=== PATIENT | male | born 1945 | race Caucasian/White ===

== ENCOUNTER → 2019-04-17 15:26 | Outpatient (CLI) | payer MEDICARE, BC, SELFPAY ==
--- NOTE | 2019-04-17 15:31 | MR_ITS ---
PROCEDURE: MR LUMBAR SPINE WO CON CLINICAL INDICATION: LUMBAR BACK PAIN W/RADICULOPATHY AFFECTING RT LOWER EXTREMIT Low back pain with right leg weakness and numbness COMPARISON: No exams were available for comparison TECHNIQUE: Standard multiplanar multiecho sequences are performed without contrast. 3-D MIP and myelographic images are also rendered and reviewed FINDINGS: There is normal alignment. The spinal cord ends at the L1-L2 level. T11-T12: Degenerate disc disease with type 2 endplate changes superiorly at T12. There is mild loss of height the T12 anteriorly which appears chronic. T12-L1: There is mild degenerative disc disease with minimal concentric bulging disc and mild facet and ligamentum hypertrophy. The disc is slightly eccentric toward the left with mild left lateral recess narrowing. L1-L2: Minimal bulging disc L2-L3: Mild facet ligamentum hypertrophy with mild left lateral recess narrowing L3-L4: Mild concentric bulging disc with mild degenerative disc disease. There is moderate facet ligamentum hypertrophy with moderate to severe bilateral lateral recess narrowing and moderate bilateral foraminal narrowing. There is canal stenosis at this level of 10 mm. Small T2 hyperintense lesion is present in the left aspect of the L4 vertebral body measuring 1 cm and may be due to small hemangioma. L4-5: There is 4 mm anterolisthesis of L4 on L5. There is a broad based central and right paracentral and foraminal disc protrusion with an associated right paracentral and foraminal disc herniation with superior extrusion of the disc with resultant severe right-sided foraminal narrowing impingement upon the exiting L4 nerve root. The disc in the right paracentral and foraminal region measures approximately 2 cm in with and is extruded superiorly by approximately eight mm. There is facet ligamentum hypertrophy at this level with moderate bilateral lateral recess narrowing, severe right-sided foraminal narrowing and mild left foraminal narrowing. The right-sided foraminal narrowing is accentuated by the disc protrusion and bulging disc. L5-S1: Mild bulging disc with a small central disc protrusion along with facet ligamentum hypertrophy with moderate left-sided foraminal narrowing. There is facet ligamentum hypertrophy at this level as well. IMPRESSION: 1. Abnormal MRI of the lumbar spine. There is mild multilevel lumbar spondylosis with bulging disc and facet and ligamentum hypertrophy. Please see above for detailed description at each level. 2. L3-L4: Mild concentric bulging disc with mild degenerative disc disease. There is moderate facet ligamentum hypertrophy with moderate to severe bilateral lateral recess narrowing and moderate bilateral foraminal narrowing. There is canal stenosis at this level of 10 mm. Small T2 hyperintense lesion is present in the left aspect of the L4 vertebral body measuring 1 cm and may be due to small hemangioma. 3. L4-5: There is 4 mm anterolisthesis of L4 on L5. There is a broad based central and right paracentral and foraminal disc protrusion with an associated right paracentral and foraminal disc herniation with superior extrusion of the disc with resultant severe right-sided foraminal narrowing impingement upon the exiting L4 nerve root. The disc in the right paracentral and foraminal region measures approximately 2 cm in with and is extruded superiorly by approximately eight mm. There is facet ligamentum hypertrophy at this level with moderate bilateral lateral recess narrowing, severe right-sided foraminal narrowing and mild left foraminal narrowing. The right-sided foraminal narrowing is accentuated by the disc protrusion and bulging disc. 4. L5-S1: Mild bulging disc with a small central disc protrusion
== END ==
PROVIDERS: PCP Family Medicine; Visit Provider Family Medicine
DX: M54.16 Radiculopathy, lumbar region (principal); R29.898 Other symptoms and signs involving the musculoskeletal system; R20.0 Anesthesia of skin
CPT/HCPCS: 72148; 76376

== ENCOUNTER → 2019-05-08 14:02 | Outpatient (POV) | payer MEDICARE, BC, SELFPAY ==
[2019-05-08 14:24] VITALS: BP 155/72; PULSE 84; RESP 18; O2SAT 97; BMI 21.6
--- NOTE | 2019-05-09 11:21 | HMH.PMCON ---
Assessment and Plan (1) Degenerative disc disease Current visit: Yes Status: Chronic Category: Medical (2) Lumbar nerve root impingement Current visit: Yes Status: Chronic Category: Medical Code(s): M54.16 - Radiculopathy, lumbar region - Assessment and plan all Dx Assessment and Plan for all problems:: We will increase the patient's gabapentin to 300 mg 1 p.o. 3 times daily. We will set him up for an L4-L5 epidural steroid injection as soon as possible and get him set up with Dr. Barkley in [place] for consultation. He has been instructed to call the office if he has any issues prior to his next appointment. I will follow-up with him in 1 month if we are not doing procedures yet to ensure that the gabapentin is helping him. Dr. Macias has reviewed this note and agrees with this plan of care. This note was dictated using voice recognition software and may contain errors or omissions HPI - Data of Consult Consult date: 05/08/19 Requesting Physician: Isabel Aviles APRN Primary Care Provider: Jj Jones MD - Consult Narrative Reason for consult: Back pain, leg pain History of present illness: Mr. Dugan is a 74 year old male who presents today with severe back pain. Patient had a recent MRI showing degenerative issues along with nerve impingement and bulging disc. Patient and I had a conversation in regards to his treatment plan. Patient is wearing a brace today. Patient's tried and failed chiropractic therapy, anti-inflammatories and is currently on gabapentin 100 mg 1 p.o. twice daily. Patient and I discussed treatment options. Including epidural injections. I do believe he also should see a neurosurgeon. CC: Isabel Aviles APRN [facility] History I have reviewed the patient's past medical history: Yes Medical History: Reports:: Hypertension, Palpitations Denies:: Diabetes Mellitus Type 1, Diabetes Mellitus Type 2 *Have you ever received a pneumonia vaccine?: Yes *Have you received a flu vaccine this season?: Yes Laterality Cases: Left: Arthroscopy Knee, Bilateral: Cataract Other Surgeries: Yes: Hernia Repair Amputation: No Fractures: No - *Social History Smoking Status: Never smoker Alcohol Intake: never *Occupational Status:: employed Housing: house Household Members: spouse *Travel in the last 8 weeks: None Family Hx:: Unable to obtain Review of Systems - Review of Systems ROS General: no recent weight change, no fever, no sleep disturbances Respiratory: no cough, no shortness of air, no recurring pulmonary infections Cardiovascular/Peripheral Vascular: No chest pain, No palpitations, no edema, no shortness of breath. Gastrointestinal: no new onset incontinence, normal bowel movements reported Genitourinary: no new onset incontinence Musculoskeletal: Back pain, leg pain Psychiatric: normal mood/ affect Neurological: [denies new onset weakness in extremities], [denies new onset balance issues] Meds Home Medications Medication Instructions Recorded Confirmed Type Gabapentin [Neurontin 300mg 300 mg PO TID #90 cap 05/08/19 Rx capsule] Objective Vital signs: Pulse Resp BP Pulse Ox 84 18 155/72 H 97 05/08/19 14:24 05/08/19 14:24 05/08/19 14:24 05/08/19 14:24 Narrative: Physical Exam General: Alert and oriented x3, no acute distress, pleasant and cooperative, [on room air] Lungs: Resps E/U, Symmetrical chest expansion, Eyes: PERRL Musculoskeletal: Flexion and extension of lumbar spine somewhat guarded secondary to pain, deep tendon reflexes normal, strength in upper and lower extremities [5/5], antalgic gait noted Neurological: speech clear, circuit breaker mechanic equal, no gross sensory deficits Opioid Risk Tool - Opioid Risk Tool-Male Family hx alcohol abuse: N Family hx illegal drugs: N Family hx rx drug abuse: N Personal hx alcohol abuse: N Personal hx illegal drugs: N Personal hx rx drug abuse: N Age: 45+ Hx of se
== END ==
PROVIDERS: PCP Family Medicine; Visit Provider Clinical Nurse Specialist Family Health
DX: M51.16 Intervertebral disc disorders with radiculopathy, lumbar region (principal)
CPT/HCPCS: 99202

== ENCOUNTER 2019-05-26 09:00 | Outpatient (RCR) | payer MEDICARE, BC, SELFPAY ==
--- NOTE | 2019-05-26 09:32 | HMH.RHREAS ---
Rehab Reassessment Rehab OP Re-assessment Start: 05/26/19 08:45 Freq: Status: Active Protocol: Document 05/26/19 08:45 GAYLEQUINCY (Rec: 05/26/19 09:32 REJI [id number]) Electronically Signed By Trip Mcnally, PT 05/26/19 08:45 Rehab Re-assessment Subjective Subjective Pt temp @arrival 97.5 Pt reports improved LBP and R LE radicular s/s since I Eval, as well as 'improved sleep and ability to stand up straighter'. However, 'it looks like I'm gonna have surgery next week'. Objective Objective Notes AROM: L-SPINE FLX 0-80, EXT 0- 25, B SB 0-40 (PAIN IN R LE W/ R SB) MMT: R HIP FLX 5/5, R HS 5/5, R QUAD 4-/5, R DF 5/5 TTP: R PIRI MM 2-3/4 Assessment Progress Assessment Slower Than Expected Assessment Notes PT W/IMPROVED AROM, HOWEVER, STILL POSSESSES LIMITATIONS IN TTP AND STRENGTH Patient goals met STG'S 05/24 Goals Not Met STG'S 06/23, LTG'S 11/24 Plan Plan PT TO HOLD SKILLED P.T. D/T LIMITED SUSTAINED FUNCTIONAL BENEFIT, AND PENDING LUMBAR MICRODISCECTOMY SX. Frequency of Therapy - Duration of therapy - Time and Billing Re-Eval Time 15 Re-Eval Billing Units 0 PHYSICIAN CERTIFICATION: I certify the specified therapy services for Allan Steward Daily are required, authorized, and reviewed every 30 days.
== END 2019-05-26 09:05 | disposition home or self-care (01) ==
LOC: PT 09:00
PROVIDERS: PCP Family Medicine; Visit Provider Family Medicine
DX: M51.26 Other intervertebral disc displacement, lumbar region (principal)
CPT/HCPCS: 97010; 97012; 97014; 97035; 97110; 97140; 97163; 97164; G0283

== ENCOUNTER 2019-10-13 09:00 | Outpatient (RCR) | payer MEDICARE, BC, SELFPAY | END 2019-10-13 09:05 | disposition home or self-care (01) | LOC: PT 09:00 | PROVIDERS: PCP Family Medicine; Visit Provider Neurological Surgery | DX: Z98.1 Arthrodesis status (principal); Z47.89 Encounter for other orthopedic aftercare | CPT/HCPCS: 97010; 97012; 97014; 97110; 97163; 97164; G0283 ==

== ENCOUNTER → 2020-01-18 12:58 | Outpatient (CLI) | payer MEDICARE, BC, SELFPAY ==
--- NOTE | 2020-01-18 13:08 | XR_ITS ---
PROCEDURE: XR FINGER RT MIN 2V CLINICAL INDICATION: RT THUMB INJURY Pain following injury COMPARISON: No exams were available for comparison FINDINGS: No fracture or dislocation. No lytic or blastic change. There is normal mineralization. 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 Bony spurring is present dorsally at the interphalangeal joint. IMPRESSION: Degenerative changes, no acute fracture Dictated by: Jameson Coleman MD 01/18/2020 17:23 Jameson Colmean MD in [place] 01/18/2020 17:23
== END ==
PROVIDERS: PCP Nurse Practitioner Family; Visit Provider Nurse Practitioner Family
DX: S69.91XA Unspecified injury of right wrist, hand and finger(s), initial encounter (principal)
CPT/HCPCS: 73140

== ENCOUNTER 2022-07-10 15:00 | Outpatient (RCR) | payer MEDICARE, BC, SELFPAY | END 2022-07-10 15:05 | disposition home or self-care (01) | LOC: PT 15:00 | PROVIDERS: PCP Nurse Practitioner Family; Visit Provider Family Medicine | DX: M54.2 Cervicalgia (principal); M47.892 Other spondylosis, cervical region | CPT/HCPCS: 97010; 97012; 97014; 97110; 97163; G0283 ==

== ENCOUNTER 2024-03-14 10:00 | Outpatient (RCR) | payer MEDICARE, BC, SELFPAY | END 2024-03-14 23:59 | disposition home or self-care (01) | LOC: PT 10:00 | PROVIDERS: PCP Nurse Practitioner Family; Visit Provider Family Medicine | DX: M21.372 Foot drop, left foot (principal) | CPT/HCPCS: 97110; 97163 ==

== ENCOUNTER 2024-04-04 09:00 | Outpatient (RCR) | payer MEDICARE, BC, SELFPAY | END 2024-04-04 23:59 | disposition home or self-care (01) | LOC: PT 09:00 | PROVIDERS: PCP Nurse Practitioner Family; Visit Provider Family Medicine | DX: M21.372 Foot drop, left foot (principal) | CPT/HCPCS: 97110; 97112; 97530 ==

== ENCOUNTER 2024-11-10 15:00 | Outpatient (RCR) | payer MEDICARE, BC, SELFPAY | END 2024-11-10 23:59 | disposition home or self-care (01) | LOC: PT 15:00 | PROVIDERS: PCP Nurse Practitioner Family; Visit Provider Family Medicine | DX: M54.2 Cervicalgia (principal) | CPT/HCPCS: 97014; 97110; 97140; 97162; 97530; G0283 ==

== ENCOUNTER 2024-12-12 10:00 | Outpatient (RCR) | payer MEDICARE, BC, SELFPAY | END 2024-12-12 23:59 | disposition home or self-care (01) | LOC: PT 10:00 | PROVIDERS: PCP Nurse Practitioner Family; Visit Provider Family Medicine | DX: M54.2 Cervicalgia (principal) | CPT/HCPCS: 97014; 97110; 97140; G0283 ==

== ENCOUNTER 2024-12-26 10:00 | Outpatient (RCR) | payer MEDICARE, BC, SELFPAY | END 2024-12-26 23:59 | disposition home or self-care (01) | LOC: PT 10:00 | PROVIDERS: PCP Nurse Practitioner Family; Visit Provider Family Medicine | DX: M54.2 Cervicalgia (principal); I10 Essential (primary) hypertension; Z79.82 Long term (current) use of aspirin | CPT/HCPCS: 97110 ==